=== PATIENT | female | born 1955 | race Caucasian/White ===

== ENCOUNTER → 2024-04-19 10:08 | Outpatient (REF) | payer MEDICARE, OTHER, SELFPAY ==
[2024-04-19] VITALS (8 sets, daily range): BP systolic 79–137; BP diastolic 65–74
== END ==
LOC: RADI 10:08
PROVIDERS: ATTENDING PHYSICIAN Nurse Practitioner Adult Health; FAMILY PHYSICIAN Family Medicine
DX: C50.911 Malignant neoplasm of unspecified site of right female breast (principal); J91.0 Malignant pleural effusion; R22.31 Localized swelling, mass and lump, right upper limb
CPT/HCPCS: 88305; 20206; 32555; 71045; 76942; 88112; 88333; 88342; 99152

== ENCOUNTER 2024-05-14 06:17 | Day surgery (SDC) | payer MEDICARE, OTHER, SELFPAY ==
[2024-05-14 08:50] VITALS: BMI 21.9
[2024-05-14 08:51] VITALS: BMI 21.9
[2024-05-14] MEDS: VANCOCIN 200 IV (09:05)
[2024-05-14] MEDS: LOVENOX 40 MG SC (09:06)
[2024-05-14] MEDS: TYLENOL 1000 MG PO (09:08)
[2024-05-14] MEDS: NORMOSOL-R/PLASMALYTE-A 1000 IV (09:09)
--- NOTE | 2024-05-14 09:16 | PTCARENOTE ---
Patient has large sleeve to the right arm with large dressing to the upper R chest. Patient ordered a wipe but after checking with Dr. Fields she said to not remove dressing or sleeve. No wipe done. Will monitor patient.
[2024-05-14 09:24] VITALS: BP 139/72
[2024-05-14 10:38] VITALS: BP 120/67
[2024-05-14 10:45] VITALS: BP 132/76
[2024-05-14 11:00] VITALS: BP 144/71
[2024-05-14 11:15] VITALS: BP 151/64
[2024-05-14] MEDS: ROXICODONE 5 MG PO (11:22)
[2024-05-14 11:30] VITALS: BP 133/71
--- NOTE | 2024-05-24 14:27 | OR.RPT ---
Operative Report
Operative Report
Date of operation: 05/14/24
Surgeon: Diamond
Pre-Op DX: Right chest wall mass
Post-Op DX: right chest wall mass
Procedure: Biopsy right chest wall mass
The patient is a 68 Y/O female with a history of right breast carcinoma treated with breast conservation surgery at an outside institution who then developed a recurrence and underwent a mastectomy without reconstruction.
She then developed chest wall induration and ulceration with associated RUE lymphedema. She was advised that this was consistent with fatty necrosis, but the lesions extended and are non-healing. She sought care at [facility] and presents now at the
request of Medical Oncology for a biopsy to establish diagnosis and determine treatment.
The patient presented to the [facility] where she was identified and confirmed side and procedure. She was prepped and antibiotic and DVT prophylaxis were provided. She was taken to the operating room and in the supine position,
intravenous sedation was delivered. The medial inferior portion of her right chest was prepped and draped and an appropriate time out procedure was performed.
Tissues were anesthetized with 1% lidocaine plain and a palpable firm mass directly under intact skin was excised by using the blade to incise the overlying skin and then removal was completed with the cautery. The specimen was sent to pathology for
analysis to confirm an adequate specimen and a frozen section was performed confirming carcinoma. The pathologist felt there was enough tissue to provide immunohistochemistry analysis. Hemostasis was maintained with the cautery and the wound was
instilled with .5% Marcaine plain. The incision was closed with simple interrupted 4-0 vicryl and a running subcuticular 4-0 Monocryl. Surgical glue and a sterile compressive dressing were applied and the patient was transferred to the Recovery
Room. All sponge, needle and instrument counts were correct.
()
== END 2024-05-14 12:18 | disposition other institution (70) ==
LOC: SDS 06:17
PROVIDERS: ATTENDING PHYSICIAN Surgery
DX: C50.919 Malignant neoplasm of unspecified site of unspecified female breast (principal); C77.9 Secondary and unspecified malignant neoplasm of lymph node, unspecified; I97.2 Postmastectomy lymphedema syndrome; J90 Pleural effusion, not elsewhere classified; Z98.890 Other specified postprocedural states; Z17.0 Estrogen receptor positive status [ER+]
CPT/HCPCS: 21550; 88305; 88332; 32555; 71045; 88112; 88331; 88341; 88342; 88360

== ENCOUNTER → 2024-05-20 12:29 | Outpatient (REF) | payer MEDICARE, OTHER, SELFPAY | LOC: RCS 12:29 | PROVIDERS: ATTENDING PHYSICIAN Internal Medicine Hematology & Oncology; FAMILY PHYSICIAN Family Medicine | DX: C50.911 Malignant neoplasm of unspecified site of right female breast (principal); C79.51 Secondary malignant neoplasm of bone | CPT/HCPCS: 93005 ==

== ENCOUNTER → 2024-05-29 14:05 | Outpatient (REF) | payer MEDICARE, OTHER, SELFPAY ==
[2024-05-29 14:20] VITALS: BP 131/82; BP_SYST 101
[2024-05-29 14:55] VITALS: BP 120/70; BP_SYST 85
[2024-05-29 15:18] VITALS: BP 120/70
== END ==
LOC: RADI 14:05
PROVIDERS: ATTENDING PHYSICIAN Internal Medicine Hematology & Oncology; FAMILY PHYSICIAN Family Medicine
DX: C80.1 Malignant (primary) neoplasm, unspecified (principal); J91.0 Malignant pleural effusion
CPT/HCPCS: 32555; 71045

== ENCOUNTER → 2024-06-12 12:30 | Outpatient (REF) | payer MEDICARE, OTHER, SELFPAY ==
[2024-06-12 13:00] VITALS: BP 150/74; BP_SYST 87
[2024-06-12 13:36] VITALS: BP 122/72; BP_SYST 91
== END ==
LOC: RADI 12:30
PROVIDERS: ATTENDING PHYSICIAN Internal Medicine Hematology & Oncology; FAMILY PHYSICIAN Family Medicine
DX: J90 Pleural effusion, not elsewhere classified (principal)
CPT/HCPCS: 32555; 71045

== ENCOUNTER → 2024-06-24 09:18 | Outpatient (REF) | payer MEDICARE, OTHER, SELFPAY ==
[2024-06-24 09:41] VITALS: BP 150/69; BP_SYST 76
[2024-06-24 10:00] VITALS: BP 113/66; BP_SYST 79
== END ==
LOC: RADI 09:18
PROVIDERS: ATTENDING PHYSICIAN Internal Medicine Hematology & Oncology; FAMILY PHYSICIAN Family Medicine
DX: J90 Pleural effusion, not elsewhere classified (principal)
CPT/HCPCS: 32555; 71045

== ENCOUNTER → 2024-07-03 14:20 | Outpatient (REF) | payer MEDICARE, OTHER, SELFPAY ==
[2024-07-03 14:45] VITALS: BP 135/64; BP_SYST 86
[2024-07-03 14:55] VITALS: BP 111/68
== END ==
LOC: RADI 14:20
PROVIDERS: ATTENDING PHYSICIAN Internal Medicine Hematology & Oncology; FAMILY PHYSICIAN Family Medicine
DX: J90 Pleural effusion, not elsewhere classified (principal)
CPT/HCPCS: 32555; 71045

== ENCOUNTER 2024-07-09 08:09 | Outpatient (RCR) | payer MEDICARE, OTHER, SELFPAY | END 2024-07-09 23:59 | disposition home or self-care (01) | LOC: RPT 08:09 | PROVIDERS: ATTENDING PHYSICIAN Internal Medicine Hematology & Oncology; FAMILY PHYSICIAN Family Medicine | DX: I97.2 Postmastectomy lymphedema syndrome (principal); C50.911 Malignant neoplasm of unspecified site of right female breast; C79.51 Secondary malignant neoplasm of bone; M79.601 Pain in right arm; Z90.11 Acquired absence of right breast and nipple | CPT/HCPCS: 97163; 97530 ==

== ENCOUNTER → 2024-07-11 09:47 | Outpatient (REF) | payer MEDICARE, OTHER, SELFPAY ==
[2024-07-11 10:10] VITALS: BP 142/80; BP_SYST 83
[2024-07-11 10:30] VITALS: BP 116/72; BP_SYST 62
== END ==
LOC: RADI 09:47
PROVIDERS: ATTENDING PHYSICIAN Internal Medicine Hematology & Oncology
DX: J90 Pleural effusion, not elsewhere classified (principal)
CPT/HCPCS: 32555; 71045

== ENCOUNTER → 2024-07-18 10:59 | Outpatient (REF) | payer MEDICARE, OTHER, SELFPAY ==
[2024-07-18 11:10] VITALS: BP 141/78; BP_SYST 100
[2024-07-18 11:33] VITALS: BP 135/72
== END ==
LOC: RADI 10:59
PROVIDERS: ATTENDING PHYSICIAN Internal Medicine Hematology & Oncology; FAMILY PHYSICIAN Family Medicine
DX: J90 Pleural effusion, not elsewhere classified (principal)
CPT/HCPCS: 32555; 71045

== ENCOUNTER → 2024-08-09 15:17 | Outpatient (REF) | payer MEDICARE, OTHER, SELFPAY ==
[2024-08-09 15:22] LABS: % Basophils 0.2 % (0-2); % Eosinophils 0.1 % (0-6); % Immature Granulocytes 0.5 % (0-0.5); % Lymphocytes 4.9 % (20.5-51.1); % Monocytes 6.8 % (1.7-9.3); % Neutrophils 87.5 % (42.2-75.2); Absolute Immature Granulocytes 0.1 10^3/uL (0-0.05); Absolute Lymphocytes 0.5 10^3/uL (1.2-3.4); Absolute Monocytes 0.7 10^3/uL (0.1-0.6); Absolute Neutrophils 9.3 10^3/uL (1.4-6.5); Hematocrit 37.2 % (37.0-47.0); Hemoglobin 12.4 g/dL (12.0-16.0); Mean Corp Hgb Conc. 33.3 g/dL (33.0-37.0); Mean Corpuscular Hgb 27.9 pg (27.0-31.0); Mean Corpuscular Volume 83.8 fL (81.0-99.0); Mean Platelet Volume 8.6 fL (7.4-10.4); Platelet Count 429 10^3/uL (130-400); Red Blood Cell Count 4.44 10^6/uL (4.20-5.40); White Blood Cell Count 10.7 10^3/uL (4.8-10.8)
[2024-08-09 16:22] LABS: ALT (SGPT) 137 U/L (0-35); AST (SGOT) 78 U/L (14-36); Albumin 3.2 g/dl (3.5-5.0); Alkaline Phosphatase 127 U/L (38-126); Blood Urea Nitrogen 38 mg/dl (7-17); Calcium 9.6 mg/dl (8.4-10.2); Carbon Dioxide 24 mmol/L (22-30); Chloride 98 mmol/L (98-107); Glucose 156 mg/dl (70-99); Potassium 5.6 mmol/L (3.5-5.1); Sodium 128 mmol/L (135-145); Total Bilirubin 0.5 mg/dl (0.2-1.3); Total Protein 5.7 g/dl (6.3-8.2); eGFR > 60.00
[2024-08-12 00:03] LABS: CA 27-29 1888.1 U/mL (<=39.0)
== END ==
LOC: OIDL 15:17
PROVIDERS: ATTENDING PHYSICIAN Nurse Practitioner Adult Health
DX: C50.911 Malignant neoplasm of unspecified site of right female breast (principal); C79.51 Secondary malignant neoplasm of bone
CPT/HCPCS: 80053; 85025; 86300

== ENCOUNTER → 2024-08-20 11:14 | Outpatient (REF) | payer MEDICARE, OTHER, SELFPAY ==
[2024-08-20 11:25] VITALS: BP 133/88; BP_SYST 94
[2024-08-20 12:01] VITALS: BP 116/79
== END ==
LOC: RADI 11:14
PROVIDERS: ATTENDING PHYSICIAN Internal Medicine Hematology & Oncology; FAMILY PHYSICIAN Family Medicine
DX: J90 Pleural effusion, not elsewhere classified (principal)
CPT/HCPCS: 32555; 71045

== ENCOUNTER 2024-08-20 18:04 | Emergency (ER) | payer MEDICARE, OTHER, SELFPAY ==
[2024-08-20 18:06] VITALS: BP 160/88
[2024-08-20 18:09] VITALS: BP 160/88
[2024-08-20 18:12] VITALS: BMI 18.4
[2024-08-20 19:00] VITALS: BP 123/79
--- NOTE | 2024-08-20 19:59 | ED.GENMED ---
History of Present Illness
<Orion Jeter, DO - Last Filed: 08/20/24 20:02>
General
Chief Complaint: Breathing Problem
Time Seen by Provider: 08/20/24 19:03
<Sandra Flynn MD, Resident - Last Filed: 08/20/24 21:38>
General
Source: patient and other (Friend Pat)
Exam Limitations: none
Nursing documentation reviewed up to this point in time: agreed with
History of Present Illness
History of Present Illness:
Christo Kinney is a 69yoF with a history notable for R breast cancer complicated by severe R lymphedema and recurrent pleural effusions, who presents with cough starting during stellate ganglion block procedure (at 4:30 pm today).
Earlier today at 11:30 am, she had a R thoracentesis and a chest x-ray afterwards demonstrated no pneumothorax.
Her oxygen saturation has increased to 99%. She has had dyspnea before the nerve block due to recurrent pleural effusions. She believes her dry throat contributes to her cough.
Past History
<Sandra Flynn MD, Resident - Last Filed: 08/20/24 21:38>
Past History
ED Past Medical History: Cancer
Patient has exhibited threatening behavior?: No
Review of Systems
<Sandra Flynn MD, Resident - Last Filed: 08/20/24 21:38>
Review of Systems
Respiratory: Reports cough and other (dry throat, chronic dyspnea)
Skin: Reports other (radiation dermatitis on right upper extremity; RUE swelling)
Phy Exam
<Sandra Flynn MD, Resident - Last Filed: 08/20/24 21:38>
Physical Exam
Physical Exam:
Severe RUE lymphedema with ulceration on the R upper back, chest, and shoulder.
General Physical Exam
General Mental: alert
ENT Exam
ENT Exam: EOMI
Additional ENT: No cervical hematoma or tenderness to palpation
Cardiovascular Exam
Cardiovascular Exam: regular rate/rhythm
Pulmonary Exam
Pulmonary Exam: lungs clear and no respiratory distress
Oxygen Status: room air
Cough: non productive cough
Gastrointestinal Exam
Gastrointestinal Exam: normal bowel sounds and non tender
Musculoskeletal Exam
Musculoskeletal Exam: edema (RUE edema requires assistance lifting to reposition)
Skin Exam
Skin Exam: erythema, mottled and other (Skin ulceration and discoloration on right scapular, shoulder, and pectoral area; significantly swollen RUE)
Scores
<Sandra Flynn MD, Resident - Last Filed: 08/20/24 21:38>
Heart Failure Risk
Heart Failure Risk Score: Not Applicable
Course
<Orion Jeter, DO - Last Filed: 08/20/24 20:02>
Orders/Labs/Results
Orders:
Orders
08/20/24 19:52
CR Chest - 2 Views Urgent
Comment: recent nerve block in neck, eval for pneumo
Reason For Exam: Cough, SOB
08/20/24 19:58
Lidocaine 4% Cream [Lmx 4] 1 applic TOPICAL NOW STA
Oxycodone [Roxicodone] 10 mg PO NOW STA
Vital Signs
Initial and Last Documented VS:
Initial Vital Signs
Temp Pulse Resp BP Pulse Ox
97.9 F 90 14 160/88 97
08/20/24 18:06 08/20/24 18:06 08/20/24 18:06 08/20/24 18:06 08/20/24 18:06
Last Documented Vital Signs
Temp Pulse Resp BP Pulse Ox
97.9 F 90 14 120/77 99
08/20/24 18:06 08/20/24 18:06 08/20/24 18:06 08/20/24 20:01 08/20/24 20:30
<Sandra Flynn MD, Resident - Last Filed: 08/20/24 21:38>
Orders/Labs/Results
Orders:
Orders
08/20/24 19:52
CR Chest - 2 Views Urgent
Comment: recent nerve block in neck, eval for pneumo
Reason For Exam: Cough, SOB
08/20/24 19:58
Lidocaine 4% Cream [Lmx 4] 1 applic TOPICAL NOW STA
Oxycodone [Roxicodone] 10 mg PO NOW STA
Vital Signs
Initial and Last Documented VS:
Initial Vital Signs
Temp Pulse Resp BP Pulse Ox
97.9 F 90 14 160/88 97
08/20/24 18:06 08/20/24 18:06 08/20/24 18:06 08/20/24 18:06 08/20/24 18:06
Last Documented Vital Signs
Temp Pulse Resp BP Pulse Ox
97.9 F 90 14 120/77 99
08/20/24 18:06 08/20/24 18:06 08/20/24 18:06 08/20/24 20:01 08/20/24 20:30
<Sandra Flynn MD, Resident - Last Filed: 08/20/24 21:38>
MDM/Problems Addressed
MDM/Problems Addressed:
Ms. Kinney is a 69yoF with a history of R breast cancer complicated by R lymphedema and recurrent pleural effusion, who is presenting with cough after stellate ganglion block.
No cervical hematoma or discoloration and no increased work of breathing on physical exam.
No large pneumothorax on chest x-ray. SpO2 stable at 99%.
Patient has significant pain from ulcerated skin on right back against and takes oxycodone 7.5 mg q4h at home. Will provide oxycodone and lidocaine cream for pain control.
Chronic conditions affecting care: Cancer
<Orion Jeter, DO - Last Filed: 08/20/24 20:02>
*Pulse Oximetry
SaO2: 98
Oxygen Mode of Delivery: Room air
<Sandra Flynn MD, Resident - Last Filed: 08/20/24 21:38>
*Pulse Oximetry
Patient hypoxic: no
*Critical Care Note
Total Time (30-74mins, 75-104mins- exclusive of procedures): Not Applicable
ED Attending Note
<Orion Jeter, DO - Last Filed: 08/20/24 20:02>
ED Attending Note
Patient seen and examined by attending physician: Yes
I performed a history and physical exam of patient and discussed management with resident, I reviewed resident's note and agree with documented findings and plan of care.: Yes
ED Attending Note:
I have seen and evaluated the patient with a [id number] encounter. I have spoken to the resident and involved in the medical history, the physical exam, medical decision making.
Evaluation and management service: agree unless noted differently below.
Results interpretation: agree unless noted differently below.
Focused HPI: 69-year-old female presenting for chest x-ray to rule out a pneumothorax. Patient has breast cancer and had a ganglionic block to the anterior right neck. Since then, she has been experiencing a cough and shortness of
Physical exam: Anterior neck is soft. No edema noted. Significant skin changes noted to right chest and right shoulder and right back consistent with metastatic cancer. Lungs otherwise clear
Medical Decision Making: Will provide pain control for her chronic pain. Will obtain chest x-ray to rule out any evidence of pneumothorax
-
Portions of this chart may have been created with voice recognition software.� Occasional wrong word or��sound alike� substitutions may have occurred due to the inherent limitations of voice recognition software.
Discharge Plan
Departure
Patient Disposition: Home (Routine Discharge)
Date of Disposition: 08/20/24
Time of Disposition: 21:29
Patient with high blood pressure during this ER visit?: No
Discharge Problem:
Cough
Prescriptions:
No Action
multivitamin Tablet
1 tab PO DAILY
ascorbic acid (vitamin C) [Vitamin C] 500 mg Tablet
500 mg PO TID
lorazepam 1 mg Tablet
1 mg PO HS
pregabalin 50 mg Capsule
50 mg PO BID
melatonin 5 mg Tablet
5 mg PO HS PRN (Reason: sleep)
Probiotic 10 billion cell Capsule
10,000 mmu cells PO DAILY
Busprenorphrin
5 mg topical .2 TIMES A WEEK
Rx Instructions:
Patch
Curcumin
1 dose PO DAILY
anastrozole [Arimidex] 1 mg Tablet
1 mg PO DAILY
sumatriptan succinate [Imitrex] 50 mg Tablet
50 mg PO PRN PRN (Reason: H/A)
letrozole 2.5 mg Tablet
2.5 mg PO DAILY
simethicone 80 mg Tablet,Chewable
80 mg PO HS
ribociclib 400 mg/day (200 mg x 2) Tablet
400 mg PO DAILY
Referrals:
Ashutosh Stuart DO [Family Provider, Family Practice]
Activity Restrictions/Additional Instructions:
You came to the ED for cough after a nerve block procedure in your neck.
The physical examination and chest x-ray were reassuring you do not have airway obstruction or lung injury from your procedures today.
Please return if you experience difficulty breathing.
Interventions
Interventions:
*Risk Screen - Suicide Last Done: 08/20/24 18:12
*General Assessment Last Done: 08/20/24 18:12
*Neglect/Abuse Screening Last Done: 08/20/24 18:12
*ED- Fall Risk Assessment Last Done: 08/20/24 18:12
*ED COVID-19 Vaccine History Last Done: 08/20/24 18:12
ED- Cardiac Assessment Last Done: 08/20/24 18:12
ED- Pulmonary Assessment Last Done: 08/20/24 18:12
Discharge Date and Time
Print Language: AFGHAN
[2024-08-20 20:01] VITALS: BP 120/77
[2024-08-20] MEDS: ROXICODONE 10 MG PO (20:26)
[2024-08-20] MEDS: LMX 4 1 APPLIC TOPICAL (21:16)
== END 2024-08-20 22:30 | disposition home or self-care (01) ==
LOC: EMR 18:04
PROVIDERS: EMERGENCY PHYSICIAN Student in an Organized Health Care Education/Training Program; FAMILY PHYSICIAN Family Medicine
DX: R05.9 Cough, unspecified (principal); R06.02 Shortness of breath; J39.2 Other diseases of pharynx; L59.8 Other specified disorders of the skin and subcutaneous tissue related to radiation; C50.911 Malignant neoplasm of unspecified site of right female breast; C79.9 Secondary malignant neoplasm of unspecified site; I89.0 Lymphedema, not elsewhere classified; L98.429 Non-pressure chronic ulcer of back with unspecified severity; L98.499 Non-pressure chronic ulcer of skin of other sites with unspecified severity; F41.9 Anxiety disorder, unspecified; G89.29 Other chronic pain; Z98.890 Other specified postprocedural states; Z85.038 Personal history of other malignant neoplasm of large intestine; Z90.11 Acquired absence of right breast and nipple
CPT/HCPCS: 99283; 71046